=== PATIENT | female | born 1945 | race Caucasian/White ===

== ENCOUNTER → 2018-02-26 | Outpatient (CLI) | payer MEDICARE, BC ==
--- NOTE | 2018-02-26 16:07 | RADRPT ---
EXAM DATE/TIME: 02/26/2018 14:15 [place] COMPARISON: No previous studies available for comparison. INDICATIONS : Tremors for 1 year. DOSE: 5.2 mCi Ioflupane Iodine-123 in 2.5 ml total volume MEDICATION(S): 130 mg Potasium Iodine PO one hour prior to injection SPECT IMAGIN.5 Hrs. IMAGING: SPECT/CT imaging with fusion was performed. RADIATION DOSE: CTDIvol (mGy) MEDICAL HISTORY : Hypertension. SURGICAL HISTORY : Hysterectomy. Cholecystectomy. Lower back surgery. ENCOUNTER: Initial ACUITY: 1 yr PAIN SCALE: 2/10 LOCATION: Head. TECHNIQUE: SPECT imaging of the brain was performed in sagittal, axial and coronal planes. Attenuation correctio n was performed with computed tomography and both the attenuation correction and non-attenuation brittani ected data sets were reviewed. FINDINGS: There is normal biodistribution of radionuclide with symmetric crescent-shaped areas of activity are in the striatum which appears distinct relative to the surrounding brain tissue. CONCLUSION: 1. Negative dopamine transporter scan Ziyad Johnson MD on February 26, 2018 at 16:02 Board Certified Radiologist. This report was verified electronically.
== END ==
LOC: HRAD 09:05
PROVIDERS: ATTEND Specialist
DX: G25.0 Essential tremor (principal)
CPT/HCPCS: 78607; A9584